=== PATIENT | female | born 1975 | race Caucasian/White ===

== ENCOUNTER 2025-02-24 17:07 | Emergency (ER) | payer OTHER ==
[~2025-02-24] VITALS: Ht 162.6 cm; Wt 57.3 kg
[~2025-02-24 17:07] MED LIST: BIRTH CONTROL
[2025-02-24 17:13] VITALS: TEMP 98.1
[2025-02-24] MEDS ORDERED: PROCHLORPERAZINE MALEATE 10 MG TABLET PO ONE (18:15)
[2025-02-24] MEDS: KETOROLAC TROMETHAMINE 30 MG/ML VIAL IM ONE (18:22)
[2025-02-24] MEDS: SODIUM CHLORIDE 0.9% 500 ML IV ONE (19:19)
[2025-02-24 19:22] LABS: PLATELET COUNT (AUTO) 313 K/uL (150-450); RED BLOOD CELL COUNT(AUTO) 4.60 MIL/uL (4.00-5.20); RED CELL DISTRIBUTION WIDTH 14.1 % (11.5-14.5); WHITE BLOOD COUNT (AUTO) 11.4 K/uL (4.5-11.0)
[2025-02-24 19:31] LABS: CALCIUM, TOTAL 8.4 mg/dL (8.8-10.5); CREATININE 0.68 mg/dL (0.60-1.30); GLOMERULAR FILTR. RATE CALC > 60 mL/min (>60); GLUCOSE,RANDOM 94 mg/dL (70-110); SODIUM SERUM 140 mmol/L (136-145); UREA NITROGEN, BLOOD 20 mg/dL (7-18)
[2025-02-24 21:30] VITALS: BP 133/60; PULSE 82; RESP 16; O2SAT 99
[2025-02-24] MEDS ORDERED: TRAZ-252 PO (21:39)
== END 2025-02-24 21:53 | disposition home or self-care (01) ==
LOC: EMS 17:07
DX: G44.209 Tension-type headache, unspecified, not intractable (principal); G47.00 Insomnia, unspecified; Z79.3 Long term (current) use of hormonal contraceptives
CPT/HCPCS: 99285; 70450; 80048; 85025; 36415; 96372; J1885